=== PATIENT | female | born 1950 | race Caucasian/White ===

== ENCOUNTER 2024-10-22 14:35 | Outpatient (CLI) | payer MEDICARE ==
--- NOTE | 2024-10-22 16:48 | RADIOLOGY REPORT ---
EXAM: DI ANKLE, COMPLETE(3VW MIN) INDICATION: WEAKNESS OF LEFT SHOULDER, BILAT. FOOT AND ANKLE PAIN TECHNIQUE: 3 views of the left ankle COMPARISON: None FINDINGS/IMPRESSION: No radiographic evidence of an acute osseous abnormality. There is no acute fracture, osseous malalig nment, or aggressive focal osseous lesion. Small well corticated ossicle inferior to the medial malle olus likely compatible with a prior deltoid ligamentous avulsive injury. Trace Achilles insertional e nthesophyte.
--- NOTE | 2024-10-22 16:48 | RADIOLOGY REPORT ---
EXAM: DI ANKLE, COMPLETE(3VW MIN) INDICATION: WEAKNESS OF LEFT SHOULDER, BILAT. FOOT AND ANKLE PAIN TECHNIQUE: 3 views of the right ankle COMPARISON: None FINDINGS/IMPRESSION: No radiographic evidence of an acute osseous abnormality. There is no acute fracture, osseous malalig nment, or aggressive focal osseous lesion. Well corticated ossicle inferior to the medial malleolus, likely related to prior deltoid ligamentous avulsive injury. Posterior calcaneal tuberosity spurring.
--- NOTE | 2024-10-22 16:49 | RADIOLOGY REPORT ---
EXAM: DI FOOT, COMPLETE (3VW MIN) INDICATION: BILAT. FOOT AND ANKLE PAIN TECHNIQUE: 3 views of the left foot COMPARISON: None FINDINGS/IMPRESSION: No radiographic evidence of an acute osseous abnormality. There is no acute fracture, osseous malalig nment, or aggressive focal osseous lesion. Posterior calcaneal tuberosity spurring. Type 3 navicular bone.
--- NOTE | 2024-10-22 16:49 | RADIOLOGY REPORT ---
EXAM: DI FOOT, COMPLETE (3VW MIN) INDICATION: BILAT. FOOT AND ANKLE PAIN TECHNIQUE: 3 views of the right foot COMPARISON: None FINDINGS/IMPRESSION: No radiographic evidence of an acute osseous abnormality. There is no acute fracture, osseous malalig nment, or aggressive focal osseous lesion. Posterior calcaneal tuberosity spurring. Possible pes planus.
--- NOTE | 2024-10-22 16:50 | RADIOLOGY REPORT ---
EXAM: DI SHOULDER, COMPLETE (MIN 2 VWS) INDICATION: WEAKNESS OF LEFT SHOULDER, ACUTE PAIN LEFT SHOULDER TECHNIQUE: 3 views of the left shoulder COMPARISON: None FINDINGS/IMPRESSION: No radiographic evidence of an acute osseous abnormality. There is no acute fracture, osseous malalig nment, or aggressive focal osseous lesion. Mild degenerative change of the left glenohumeral joint
--- NOTE | 2024-10-22 19:26 | RADIOLOGY REPORT ---
CLINICAL INDICATION: PAIN IN LEFT SHOULDER COMPARISON: Radiographs of the left shoulder performed on 10/22/2024 TECHNIQUE: Multiplanar, multisequence MRI of the right shoulder was performed without contrast. Contrast: None FINDINGS: Glenohumeral joint: There is no fracture or bone marrow edema. Alignment is maintained. Multifocal articular cartilage loss in the humeral head with osteophyte formation. Glenohumeral joint space [employer] rowing. There is no joint effusion or synovitis. Acromioclavicular joint: The acromioclavicular joint is narrowed with capsular hypertrophy. There is a type 1 acromion. Rotator cuff and bursae: There is supraspinatus tendinosis and a partial-thickness bursal surface tea r at the anterior footprint. There is infraspinatus tendinosis and fraying of the articular surface fibers without a juanito tear. Subscapularis and teres minor tendons are intact.. There is no regiona l muscle atrophy. Trace fluid distention of the subacromial subdeltoid bursa. Biceps tendon and glenoid labrum: The long head biceps tendon is located within the bicipital groove and intact. The labrum is unremarkable. IMPRESSION: 1. Supraspinatus tendinosis and partial-thickness bursal surface tear of the anterior footprint in th e left shoulder. 2. Infraspinatus tendinosis and fraying of the articular surface fibers without juanito tear. 3. Glenohumeral and acromioclavicular joint arthrosis. 4. Subacromial subdeltoid bursitis.
== END 2024-10-22 23:59 | disposition home or self-care (01) ==
LOC: MRI 14:35
PROVIDERS: ATTEND Nurse Practitioner Family
DX: M19.011 Primary osteoarthritis, right shoulder (principal); M19.012 Primary osteoarthritis, left shoulder; M75.102 Unspecified rotator cuff tear or rupture of left shoulder, not specified as traumatic; R29.898 Other symptoms and signs involving the musculoskeletal system; M21.41 Flat foot [pes planus] (acquired), right foot; M21.42 Flat foot [pes planus] (acquired), left foot; M25.571 Pain in right ankle and joints of right foot; M77.31 Calcaneal spur, right foot; M25.512 Pain in left shoulder
CPT/HCPCS: 73030; 73221; 73610; 73630